=== PATIENT | female | born 1980 | race Caucasian/White ===

== ENCOUNTER → 2019-12-03 | Outpatient (CLI) | payer SELFPAY ==
--- NOTE | 2019-12-03 12:48 | XR ---
EXAMINATION TYPE: XR foot complete LT DATE OF EXAM: 12/03/2019 CLINICAL HISTORY: Left foot pain and fracture TECHNIQUE: Frontal, lateral, and oblique images of the left foot are obtained. COMPARISON: None FINDINGS: There is an acute obliquely oriented fracture of the fifth metatarsal the left foot beginn ing in the distal diaphysis and extending into the distal metaphysis. There is approximately 2 mm med ial displacement of the distal fracture fragment with overlying soft tissue swelling. No radiopaque f oreign body seen in the soft tissues. No additional fracture identified IMPRESSION: Acute obliquely oriented minimally displaced diaphyseal fracture of the left fifth metata rsal diaphysis extending into the distal metaphysis with overlying soft tissue swelling. A Yellow level critical message alert has been initiated for Adriano Carpio MD via the [employer] Critical Results System on 12/03/2019 12:46 PM. This message alert has been sent to Adriano rodrigez MD via the preferences provided by the clinician for the receipt of Radiology Critical Findings. Jared essage ID [id number].
== END | disposition home or self-care (01) ==
LOC: RADXRMAIN 12:31
PROVIDERS: ATTEND Obstetrics & Gynecology
DX: S92.352A Displaced fracture of fifth metatarsal bone, left foot, initial encounter for closed fracture (principal)